=== PATIENT | male | born 1985 | race Caucasian/White ===

== ENCOUNTER 2021-09-22 09:17 | Emergency (ER) | payer OTHER ==
[~2021-09-22] VITALS: Ht 180.3 cm; Wt 124.7 kg
[2021-09-22] MEDS ORDERED: CELEXA10 MG PO (09:38)
[2021-09-22] MEDS ORDERED: DOXYCYCLINE HY100 MG PO (11:39)
== END 2021-09-22 13:35 | disposition home or self-care (01) ==
LOC: ER 09:17
DX: N39.0 Urinary tract infection, site not specified (principal); A64 Unspecified sexually transmitted disease